=== PATIENT | male | born 1945 | race Caucasian/White ===

== ENCOUNTER 2017-12-31 08:09 | Emergency (ER) | payer BC, MEDICARE ==
--- NOTE | 2017-12-31 08:22 | ER Document Report ---
ED Hand/Wrist Injury - General Chief Complaint: Finger Injury Stated Complaint: FINGER PAIN Time Seen by Provider: 12/31/17 08:22 Notes: 72-year-old male to the emergency department chief complaint of finger pain and swelling. Patient states that he has had this happen once before over looks like he has something under the fingernail and the finger becomes swollen. Last time it went away on its own. This time it seems more red and swollen and painful. Could not sleep last night. It is the second digit on the right hand and underneath the fingernail. Fever chills or sweats. No other symptoms. TRAVEL OUTSIDE OF THE [place] IN LAST 30 DAYS: No - HPI Injury to: Index finger Where: Home Timing: Constant Quality of pain: Throbbing Pain Level: 4 - Related Data Allergies/Adverse Reactions: No Known Allergies Allergy (Verified 12/31/17 08:11) Past Medical History - General Information source: Patient - Social History Smoking Status: Never Smoker Cigarette use (# per day): No Frequency of alcohol use: None Drug Abuse: None Lives with: Spouse/Significant other Family History: Reviewed & Not Pertinent - Medical History Notes: Coronary artery disease, hypertension, Review of Systems - Review of Systems Constitutional: denies: Chills, Fever, Weakness Cardiovascular: denies: Chest pain, Palpitations, Heart racing Respiratory: denies: Hurts to breathe, Short of breath Musculoskeletal: See HPI, Other - Finger swelling tenderness on the second digit of the right hand. Skin: See HPI Hematologic/Lymphatic: Easy bleeding, Easy bruising. denies: Blood clots Neurological/Psychological: denies: Weakness, Numbness Physical Exam - Vital signs Vitals: Temp Pulse Resp BP Pulse Ox 98.3 F 64 16 146/66 H 98 12/31/17 08:15 12/31/17 08:15 12/31/17 08:15 12/31/17 08:15 12/31/17 08:15 Interpretation: Normal - Respiratory Respiratory status: No respiratory distress Chest status: Nontender Breath sounds: Normal Chest palpation: Normal - Cardiovascular Rhythm: Regular Heart sounds: Normal auscultation Murmur: No - Extremities General upper extremity: Other - There is a swollen distal fingertip on the right hand second digit. There appears to be a subungual hematoma and a black streak under the nail. The finger pad is not tense. There does not appear to be a felon. - Neurological Neuro grossly intact: Yes [place] Coma Scale Eye Opening: Spontaneous [place] Coma Scale Verbal: Oriented Yaa Coma Scale Motor: Obeys Commands [place] Coma Scale Total: 15 Sensory: Normal - Skin Skin Temperature: Warm Skin Moisture: Dry Skin Color: Other - Second digit right hand erythema with some paronychial involvement and subungual hematoma appearance with some discoloration consistent with purulent discharge/infection Course - Re-evaluation Re-evalutation: 12/31/17 09:30 After consent was obtained the fingertip was prepped with Betadine. A electrocautery device was used to make a small hole just distal to the paronychia through the nail. A large amount of drainage was obtained. A Band- Aid was placed. Patient tolerated procedure well. Patient was given instructions to to follow-up with a rural service engineer as this reoccurring dark presentation under the nail could represent an occult melanoma which would need further evaluation. At this time I do not think that there is anything that I can remove. There could be a foreign body in the nailbed as well but this needs further evaluation as an outpatient. Will place him on some antibiotics and pain medication. Return for any worsening symptoms or concerns. - Vital Signs Vital signs: Temp Pulse Resp BP Pulse Ox 98.3 F 64 16 146/66 H 98 12/31/17 08:15 12/31/17 08:15 12/31/17 08:15 12/31/17 08:15 12/31/17 08:15 Discharge - Discharge Clinical Impression: Acute paronychia of finger of right hand Condition: Good Instructions: Subungual Hematoma ([facility]) Additional Instructions: Technically speaking your finger has an infection in the paronychial area but there was some infection and a little bit of blood under the nail bed as well. We made a small hole in the nail to drain the pus and blood. The finger should decrease in swelling. We are going to place you on some antibiotics. Pain medication has been ordered. In the event that your finger is getting more swollen, painful, red or for any other current concerns please return. Prescriptions: Amox Tr/Potassium Clavulanate [Augmentin 875-125 Tablet] 1 tab PO BID 5 Days # 10 tablet Tramadol HCl [Ultram 50 mg Tablet] 50 mg PO Q6H PRN 4 Days #15 tab PRN Reason:
[2017-12-31] MEDS ORDERED: AMOXICILLIN TR/POT CLAVULANATE 500-125 MG TAB PO ONE (08:36)
[2017-12-31] MEDS ORDERED: TRAMADOL HCL 50 MG TABLET PO ONE (08:36)
[2017-12-31 09:45] VITALS: BP 129/67
== END 2017-12-31 09:25 | disposition home or self-care (01) ==
LOC: ER 08:09
DX: L03.011 Cellulitis of right finger (principal)
CPT/HCPCS: 99283